=== PATIENT | female | born 1950 | race Caucasian/White ===

== ENCOUNTER → 2017-03-16 | Outpatient (CLI) | payer BC ==
--- NOTE | 2017-03-19 13:09 | MM ---
Reason for exam: screening (asymptomatic). Last mammogram was performed 8 years and 8 months ago. History: Patient is postmenopausal. Family history of breast cancer in mother at age 70. Physical Findings: A clinical breast exam by your physician is recommended on an annual basis and results should be correlated with mammographic findings. MG Screening Mammo w CAD Bilateral CC, MLO, and XCCL view(s) were taken. Prior study comparison: July 08, 2008, bilateral digital screening mammogram. June 25, 2007, bilateral screening mammogram w/CAD. There are scattered fibroglandular densities. No significant changes when compared with prior studies. ASSESSMENT: Negative, BI-RAD 1 RECOMMENDATION: Routine screening mammogram of both breasts in 1 year.
== END | disposition home or self-care (01) ==
LOC: RADMAMWWP 15:36
PROVIDERS: ATTEND Family Medicine
DX: Z12.31 Encounter for screening mammogram for malignant neoplasm of breast (principal)

== ENCOUNTER → 2018-10-31 | Outpatient (CLI) | payer MEDICARE, BC ==
--- NOTE | 2018-11-01 09:11 | MM ---
Reason for exam: screening (asymptomatic). Last mammogram was performed 1 year and 7 months ago. History: Patient is postmenopausal. Family history of breast cancer in mother at age 70. Physical Findings: A clinical breast exam by your physician is recommended on an annual basis and results should be correlated with mammographic findings. MG 3D Screening Mammo W/Cad Bilateral CC and MLO view(s) were taken. Prior study comparison: March 16, 2017, bilateral MG screening mammo w CAD. July 08, 2008, bilateral digital screening mammogram. The breast tissue is heterogeneously dense. This may lower the sensitivity of mammography. No suspicious abnormality. No significant changes when compared with prior studies. ASSESSMENT: Negative, BI-RAD 1 RECOMMENDATION: Routine screening mammogram of both breasts in 1 year.
== END | disposition home or self-care (01) ==
LOC: RADMAMWWP 12:46
PROVIDERS: ATTEND Family Medicine
DX: Z12.31 Encounter for screening mammogram for malignant neoplasm of breast (principal)
CPT/HCPCS: 77063; 77067

== ENCOUNTER → 2021-03-15 | Outpatient (CLI) | payer MEDICARE ==
[~2021-03-15] MED LIST: DOBUTamine DRIP for NUC MED 500 MG in DEXTROSE/WATER 1 250ML.BAG IV PRN
--- NOTE | 2021-03-15 14:24 | ECHOS ---
STRESS ECHOCARDIOGRAM DOBUTAMINE STRESS ECHOCARDIOGRAM: DATE OF SERVICE: 03/15/2021 LUMASON: N/A Vial INDICATIONS: Preop cc MEDICATIONS: BASELINE HEART RATE: 79 BASELINE BLOOD PRESSURE: 139/79 MAXIMUM HEART RATE: 129 MAXIMUM BLOOD PRESSURE: 126/52 85% MPHR: 129 100% MPHR: 152 METS: MAXIMUM STAGE REACHED: IV TOTAL EXERCISE TIME: 12:33 CLINICAL INFORMATION: STRESS DATA: Heart rate is 79, pressure is 139/79 mmHg. Baseline EKG showed sinus mechanism. Dobutamine infusion at a dose of 10 mcg/kg per minute was initiated and increased to 40 mcg/kg per minute per protocol. The max heart rate was 129, which is about 100% of maximum predicted heart rate and maximum blood pressure was 126/52 mmHg. Clinically, the patient did not have any symptoms of chest pain or chest discomfort during the testing or on recovery. The EKG did not show any significant ST or T-wave abnormalities concerning for ischemia. ECHOCARDIOGRAM IMAGES: On echocardiogram images from parasternal long axis view, parasternal short axis view, apical 4 chambers and apical 2 chambers were obtained as the baseline images, at low dose dobutamine infusion, as well as at the peak heart rate and also on recovery. The echocardiogram images were technically difficult and Lumason was used. On recovery, the patient did have some anterior wall hypokinesia concerning for ischemia. CONCLUSION: 1. Normal EKG in response to dobutamine. 2. Abnormal echocardiogram in response to dobutamine with evidence of anterior wall motion abnormalities concerning for ischemia. 3. Please note that the study was technically difficult. MMLYNSEYL / IJN: [id number] /
== END | disposition home or self-care (01) ==
LOC: RADNMMAIN 09:45
PROVIDERS: ATTEND Family Medicine
DX: R94.31 Abnormal electrocardiogram [ECG] [EKG] (principal)
CPT/HCPCS: C8930; Q9950; 93351

== ENCOUNTER → 2021-03-21 | Outpatient (CLI) | payer MEDICARE | END | disposition home or self-care (01) | LOC: LABPAT 11:06 | PROVIDERS: ATTEND Orthopaedic Surgery | DX: Z01.812 Encounter for preprocedural laboratory examination (principal); M16.12 Unilateral primary osteoarthritis, left hip | CPT/HCPCS: 87070 ==

== ENCOUNTER → 2021-04-06 | Outpatient (CLI) | payer MEDICARE ==
[2021-04-06 10:20] LABS: HCT 38.4 % (34.0-46.0); HGB 13.3 gm/dL (11.4-16.0); MCH 34.1 pg (25.0-35.0); MCHC 34.7 g/dL (31.0-37.0); MCV 98.1 fL (80.0-100.0); Mean Platelet Volume 6.9; Platelet Count 331 k/uL (150-450); RBC 3.91 m/uL (3.80-5.40); RDW 13.1 % (11.5-15.5); WBC 7.2 k/uL (3.8-10.6)
[2021-04-06 10:40] LABS: African American GFR (CKD) >90 (>60 ml/min/1.73 sqM); Anion Gap 10 mmol/L; Blood Urea Nitrogen 19 mg/dL (7-17); Carbon Dioxide 28 mmol/L (22-30); Chloride 93 mmol/L (98-107); Non-African American GFR(CKD) 85 (>60 ml/min/1.73 sqM); Sodium 131 mmol/L (137-145)
== END | disposition home or self-care (01) ==
LOC: LABWHC1 09:40
PROVIDERS: ATTEND Internal Medicine Cardiovascular Disease
DX: Z01.812 Encounter for preprocedural laboratory examination (principal); R93.1 Abnormal findings on diagnostic imaging of heart and coronary circulation
CPT/HCPCS: 36415; 80051; 82565; 84520; 85027

== ENCOUNTER → 2021-04-08 | Outpatient (CLI) | payer MEDICARE | END | disposition home or self-care (01) | LOC: LABWHC1 07:59 | PROVIDERS: ATTEND Family Medicine | DX: E87.1 Hypo-osmolality and hyponatremia (principal) | CPT/HCPCS: 36415; 82024; 82533; 84588 ==

== ENCOUNTER 2021-04-14 09:08 | Day surgery (SDC) | payer MEDICARE ==
[2021-04-11 12:10] VITALS: BMI 41.5
[~2021-04-14 09:08] MED LIST changes: +ALPRAZolam 0.25 MG TAB PO PRN; +ALPRAZolam 0.5 MG TAB PO PRN; +ASPIRIN 325 MG TAB PO STA; +ATORVASTATIN 80 MG TAB PO STA; -DOBUTamine DRIP for NUC MED 500 MG in DEXTROSE/WATER 1 250ML.BAG IV PRN; +NITROGLYCERIN SL TABS 0.4 MG TAB SUBLINGUAL PRN; +SODIUM CHLORIDE 0.9% 1,000 ML in EMPTY BAG 1 BAG IV ONE
[2021-04-14 09:53] LABS: Glucose,Whole Blood 125 mg/dL (75-99)
[2021-04-14 09:57] VITALS: RESP 18; TEMP 99.2
[2021-04-14] MEDS: MIDAZOLAM 2 MG/2 ML VIAL IVP ONE ×2 (10:53→10:56)
[2021-04-14] MEDS ORDERED: fentaNYL (PF) 50 MCG/ML 2 ML AMP IVP ONE (10:53)
[2021-04-14] MEDS ORDERED: LIDOCAINE 1% INJ 10MG/ML (20 ML MDV) SQ ONE (10:55)
[2021-04-14] MEDS ORDERED: IOPAMIDOL-370 125ML BTL INJ ONE (11:15)
[2021-04-14] MEDS ORDERED: RX INFO: IV CONTRAST WAS GIVEN 1 EACH MISC MISCELLANE PRN (11:47)
[2021-04-14] MEDS ORDERED: SODIUM CHLORIDE 0.9% 1,000 ML IV SCH (12:00)
[2021-04-14] MEDS ORDERED: ACETAMINOPHEN TAB 325 MG TAB ONE (13:12)
--- NOTE | 2021-04-14 14:56 | CC ---
CARDIAC CATHETERIZATION REPORT INDICATION: This is a 70-year-old lady who was to undergo a hip replacement and underwent a dobutamine stress echo as part of preop cardiac evaluation. The stress test showed ischemia in LAD distribution and I advised her to undergo invasive angiography prior to surgery. She was explained of risks, benefits and alternatives, understood and accepted. PROCEDURE NOTE: After obtaining informed consent, left heart catheterization and coronary angiogram were performed via the right femoral artery using standard Rosalba catheters. The patient tolerated the procedure well without any obvious immediate complications. A femoral angiogram was performed and Angio-Seal will be deployed for hemostasis. Patient received moderate conscious sedation. Total sedation time was 15 minutes. FINDINGS: 1. HEMODYNAMICS: Left ventricular end-diastolic pressure is 12-14 mm. There is no significant gradient across the aortic valve. 2. LEFT VENTRICULOGRAM: Left ventriculogram is not performed. 3. ANGIOGRAPHIC DATA: Left Main Coronary Artery: Left main coronary artery is a normal-sized vessel and is free of stenosis. Divides into left anterior descending coronary artery and circumflex coronary artery. LAD and its branches, circumflex coronary artery and its branches are free of significant stenosis. Right coronary artery is a large dominant vessel. There is a focal 80% to 90% stenosis involving the PLV branch. CONCLUSION: Single-vessel coronary artery disease as described above. PLAN: Given the fact that the patient does not have any symptoms of angina, shortness of breath and does not have any evidence of ischemia in the PLV distribution, the plan at this stage is to let her go through her hip replacement and treat her with medical therapy and consider revascularization of the PLV after the surgery if necessary. I discussed the pros and cons of treatment options with the patient. She understands and is in agreement with the plan. She has significant and disabling hip pain with very limited physical activity. MMODL / IJN: [id number] /
--- NOTE | 2021-04-14 15:01 | LTR ---
April 14, 2021 Re: Inez Busby Dear Steven: I performed cardiac catheterization on Inez Busby. A detailed catheterization note is enclosed for your records. In brief, cardiac catheterization revealed significant stenosis involving the PLV branch. Given the fact that the patient does not have any cardiac symptoms and does not have any ischemia in the PLV distribution, we opted to treat her with medical therapy and let her go through hip replacement surgery at this time. We will consider revascularization of the PLV if necessary down the road. Thank you for giving us the privilege to participate in the care of this pleasant lady. Sincerely, MD YEYO Cannon / ABEL: [id number] /
[2021-04-14 16:52] VITALS: BP 124/68; PULSE 72
== END 2021-04-14 16:38 | disposition home or self-care (01) ==
LOC: CATHCVL 09:08
PROVIDERS: ATTEND Internal Medicine Cardiovascular Disease
DX: I25.10 Atherosclerotic heart disease of native coronary artery without angina pectoris (principal); F17.210 Nicotine dependence, cigarettes, uncomplicated; E11.9 Type 2 diabetes mellitus without complications; I10 Essential (primary) hypertension; E78.5 Hyperlipidemia, unspecified; Z82.49 Family history of ischemic heart disease and other diseases of the circulatory system; Z79.899 Other long term (current) drug therapy; Z79.84 Long term (current) use of oral hypoglycemic drugs; Z88.2 Allergy status to sulfonamides; Z88.8 Allergy status to other drugs, medicaments and biological substances
CPT/HCPCS: 93458; 87635; C1769 ×2; C1760; C1894; J2250; J2001; J3010; Q9967

== ENCOUNTER → 2021-05-13 | Outpatient (CLI) | payer MEDICARE ==
[2021-05-13 09:45] LABS: Basophils # (A) 0.1 k/uL (0-0.2); Basophils % (A) 1 %; Eosinophils # (A) 2.1 k/uL (0-0.7); Eosinophils % (A) 22 %; HCT 39.4 % (34.0-46.0); Lymphocytes # (A) 1.5 k/uL (1.0-4.8); Lymphocytes % (A) 15 %; MCH 32.1 pg (25.0-35.0); MCHC 33.1 g/dL (31.0-37.0); Monocytes # (A) 0.4 k/uL (0-1.0); Monocytes % (A) 4 %; Neutrophils # (A) 5.6 k/uL (1.3-7.7); Neutrophils % (A) 57 %; Platelet Count 306 k/uL (150-450); RBC 4.06 m/uL (3.80-5.40); RDW 13.6 % (11.5-15.5); WBC 9.9 k/uL (3.8-10.6)
[2021-05-13 09:55] LABS: Prothrombin Time 10.6 sec (9.0-12.0)
[2021-05-13 10:08] LABS: Potassium 5.2 mmol/L (3.5-5.1)
== END | disposition home or self-care (01) ==
LOC: LABPAT 08:39
PROVIDERS: ATTEND Orthopaedic Surgery
DX: Z01.812 Encounter for preprocedural laboratory examination (principal); M16.12 Unilateral primary osteoarthritis, left hip
CPT/HCPCS: 36415; 80051; 85025; 85610

== ENCOUNTER 2021-05-23 06:12 | Day surgery (SDC) | payer MEDICARE ==
[2021-05-18 10:11] VITALS: BMI 42.1
--- NOTE | 2021-05-22 11:55 | HP ---
HISTORY AND PHYSICAL Inez Wiley is a 70-year-old patient seen with symptomatic left hip osteoarthritis. We discussed options for treatment. She elected to proceed with left total hip arthroplasty. Consent regarding the procedure was obtained. Medical clearance was provided by Dr. Cobian. PAST MEDICAL HISTORY: Hypertension, hyperlipidemia, tht-rxejriy-ieqbzubys diabetes, hypothyroidism. PAST SURGICAL HISTORY: Hysterectomy. MEDICATIONS: Amitriptyline, atorvastatin, hydrochlorothiazide, metformin, metoprolol, Xanax. ALLERGIES: NONE. SOCIAL HISTORY: She denies tobacco use. PHYSICAL EXAMINATION: Evaluation of the left hip, she has a very limited range of motion. Severe pain. Positive hip impingement sign. Straight leg raise negative. Distal neurovascular exam is intact. RADIOGRAPHS: Radiographs of the left hip reveal severe osteoarthritic changes. IMPRESSION: 1. Left hip osteoarthritis. 2. Hypertension. 3. Hyperlipidemia. 4. Zpp-jfsazjh-jcpoakiyh diabetes. PLAN: Direct anterior approach left total hip arthroplasty. Surgery scheduled 05/23/2021. MMODL / IJN: [id number] /
[~2021-05-23 06:12] MED LIST changes: +ACETAMINOPHEN TAB 500 MG TAB PO PRN; -ALPRAZolam 0.25 MG TAB PO PRN; -ALPRAZolam 0.5 MG TAB PO PRN; -ASPIRIN 325 MG TAB PO STA; -ATORVASTATIN 80 MG TAB PO STA; +DEXAMETHASONE SOD PHOSPHATE 4 MG/ML 1 ML VIAL IV ONE; +MELOXICAM 7.5 MG TAB PO PRN; +MIDAZOLAM 2 MG/2 ML VIAL IV PRN; -NITROGLYCERIN SL TABS 0.4 MG TAB SUBLINGUAL PRN; +ONDANSETRON 4 MG/2 ML VIAL IVP ONE; -SODIUM CHLORIDE 0.9% 1,000 ML in EMPTY BAG 1 BAG IV ONE; +TRANEXAMIC ACID 1,000 MG in SODIUM CHLORIDE 0.9% 100 ML IVPB PRN
[2021-05-23 06:55] LABS: Glucose,Whole Blood 137 mg/dL (75-99)
[2021-05-23] MEDS ORDERED: HYDROmorphone 0.5 MG/0.5 ML SYRINGE IVP PRN ×3 (07:00→09:13)
[2021-05-23] MEDS ORDERED: LACTATED RINGERS 1,000 ML IV ONE ×2 (07:08→09:20)
[2021-05-23] MEDS ORDERED: KETAMINE 10 MG/ML 20 ML VIAL ONE (07:27)
[2021-05-23] MEDS ORDERED: ePHEDrine SULFATE/0.9% NACL/PF 50 MG/5 ML SYRINGE IV ONE (07:27)
[2021-05-23] MEDS ORDERED: PROPOFOL 10 MG/ML 20 ML VIAL IV ONE (07:27)
[2021-05-23] MEDS ORDERED: MIDAZOLAM 2 MG/2 ML VIAL ONE (07:27)
[2021-05-23] MEDS ORDERED: SODIUM CHLORIDE 0.9% 100 ML BAG ONE (07:27)
[2021-05-23] MEDS ORDERED: fentaNYL (PF) 50 MCG/ML 2 ML AMP ONE (07:27)
[2021-05-23] MEDS ORDERED: TRANEXAMIC ACID 1,000 MG/10 ML VIAL ONE (07:27)
[2021-05-23] MEDS ORDERED: PHENYLEPHRINE-0.9% NACL SYG 1,000 MCG/10 ML SYRINGE ONE (07:27)
[2021-05-23] MEDS ORDERED: LIDOCAINE 1% INJ 10MG/ML (20 ML MDV) ONE (07:27)
[2021-05-23] MEDS ORDERED: diphenhydrAMINE 50 MG/ML 1 ML VIAL ONE (07:27)
[2021-05-23] MEDS ORDERED: ceFAZolin 1,000 MG in SODIUM CHLORIDE 0.9% 1,000 ML IRRIGATION ONE (07:30)
[2021-05-23] MEDS: ROPIVACAINE/EPI/CLONIDINE/KET 50 ML SYRINGE MISCELLANE PRN ×2 (08:04→08:49)
[2021-05-23] MEDS ORDERED: HYDROmorphone 0.2 MG/1 ML SYRINGE IVP PRN (09:13)
[2021-05-23] MEDS ORDERED: NALOXONE 0.4 MG/ML 1 ML VIAL IV PRN (09:13)
[2021-05-23] MEDS ORDERED: ONDANSETRON 4 MG/2 ML VIAL IVP PRN (09:13)
[2021-05-23] MEDS ORDERED: HYDROcodone/APAP 5-325MG 1 EACH TAB PO PRN (09:13)
--- NOTE | 2021-05-23 09:13 | P.OP ---
Date of Procedure: 05/23/21 Preoperative Diagnosis: Left hip osteoarthritis Postoperative Diagnosis: Left hip osteoarthritis Procedure(s) Performed: Direct anterior left total hip arthroplasty Implants: 1. Depuy Corail size 12 135 collar press-fit femoral stem 2. Depuy pinnacle 52 mm press-fit acetabular shell 3. Depuy pinnacle neutral polyethylene acetabular liner 36 mm ID 52 mm OD 4. Biolox delta ceramic femoral head +8.5 36 mm Anesthesia: local, spinal Surgeon: Dionicio Echeverria Study Assistant #1: Christiano Muhammad Estimated Blood Loss (ml): 125 Pathology: other (Femoral head) Condition: stable Disposition: PACU Indications for Procedure: 70-year-old patient seen with symptomatic left hip osteoarthritis. After treatment options were discussed, she elected to proceed with total hip arthroplasty via direct anterior approach. Operative Findings: See description of procedure Description of Procedure: The patient was taken to the operative suite. Patient underwent a spinal anesthetic by the department of anesthesia. Patient was then transferred to the [place] table. Patient was given preoperative IV antibiotics and TXA. Both lower extremities were placed in standard leg spars. The hip was then prepped and draped in the normal sterile orthopedic fashion. A standard anterior incision was made beginning 3 cm lateral and 1 cm distal to the ASIS extending 10 cm. Dissection was then carried down through the subcutaneous soft tissues down to the fascia overlying the tensor fascia lou. An incision was now made through the fascia. Careful dissection was taken down exposing the tensor fascia lou muscle. A Cobra retractor was now placed along the medial femoral neck and a second one along the lateral femoral neck. The venous circumflex vessels were now identified, cauterized and clipped. We identified the anterior hip capsule. An incision was made through the hip capsule along the lateral border. I performed a partial anterior capsulectomy. Retractors were now placed around the femoral neck itself. A femoral neck cut was now made with a sagittal saw. It was completed with an osteotome at the lateral neck area. The femoral head was now removed without difficulty. The extremity was now rotated to 60 of external rotation. It was locked in position. Residual labrum was now debrided out. Serial reaming was performed of the acetabulum while Dixon weinstein sisted holding an anterior retractor for exposure. Once we reached the appropriate size and a trial was position and fit nicely. The appropriate size was now chosen opened and made available. It was introduced into the acetabulum without difficulty. The C-arm/fluoroscopy was now brought into the operative field. We made sure we had a true AP pelvic view. We now under direct C-arm/fluoroscopy introduced into the acetabular component with appropriate version and inclination. I held the cup in appropriate position well Dixon DURON used a mallet to seat the acetabular component. I noted the component now to be well seated and stable. Acetabular cup introduce her was removed. The C-arm was pulled back. An appropriate liner was introduced and clicked into position. It was felt to be stable. At this point retractors were removed. The extremity was now placed into 120 external rotation with no traction. The leg was now dropped to the ground and adducted. Appropriate retractors were now positioned along the proximal femur. We also placed our femoral look into position. Additional capsular releasing was performed to gain access to the proximal femur. We now used a box osteotome. A canal finder was now utilized. Serial broaching was now performed with the assistance of Dixon DURON tapping the broaches down with a mallet while held the broach in appropriate rotation and position. This was done until we reached the appropriate size with good overall rotational stability. Appropriate calcar planing was performed. A trial head/neck was placed into position. The hip was now reduced. The C- arm/fluoroscopy was brought back into the operative field. I obtained an AP pelvis which demonstrated reasonable leg length alignment. The trial components appeared adequately size and position. The C-arm/fluoroscopy was pulled back. Retractors were repositioned and the hip was dislocated. The leg was again taken down to the ground and adducted. Appropriate retractors were repositioned as well as the femoral hook. All trial components were removed. The femoral implant was opened along with the femoral head. The femoral implant was introduced on the appropriate handle into our pre-broached area. I held the component position well Dixon DURON used a mallet to seat the femoral component. The femoral component was now noted to be well seated and stable.. The femoral head was introduced with good positioning and fixation noted. Retractors were now removed. The hip was now reduced. There appeared be good positioning of the hip confirmed on intraoperative fluoroscopy. Spot films were obtained to document this. A second gram of TXA was given. The deep and superficial soft tissues were infiltrated with local analgesic. Bipolar cautery had been utilized intermittently through the procedure for hemostasis. The wound was irrigated copiously with pulse lavage mechanical irrigation. The fascia was repaired with Vicryl suture. The subcutaneous soft tissues were repaired in layers with Vicryl suture. The skin was approximated with pernio/Dermabond. Sterile dressings were applied. Patient was then awakened, transferred to a bed and taken to recovery in stable condition. Dixon DURON assisted with the complex procedure.
[2021-05-23 09:56] LABS: Glucose,Whole Blood 162 mg/dL (75-99)
[2021-05-23] MEDS ORDERED: ALPRAZolam 0.25 MG TAB PO PRN (11:00)
[2021-05-23] MEDS: LACTATED RINGERS 1,000 ML IV SCH ×3 (11:18→20:23)
[2021-05-23 11:43] LABS: Glucose,Whole Blood 236 mg/dL (75-99)
[2021-05-23] MEDS: INSULIN ASPART (NovoLOG) 100 UNIT/ML VIAL SQ SCH ×3 (12:36→20:29)
[2021-05-23] MEDS: METOPROLOL SUCCINATE (ER) 25 MG TAB.ER.24H PO SCH (12:38)
[2021-05-23] MEDS: ISOSORBIDE MONONITRATE ER 30 MG TAB.ER.24H PO SCH (12:38)
--- NOTE | 2021-05-23 14:49 | P.CONS ---
History of Present Illness - Reason for Consult Consult date: 05/23/21 Medical management - Chief Complaint Right hip also arthritis - History of Present Illness This is a 70-year-old female with past medical history noted below that presented to the hospital for elective total left hip arthroplasty. Patient is postoperative day #0. She does not have any specific concerns or complaints. Her pain is well controlled. I was asked to see her for medical management. Review of Systems Review of system: 14 points review of systems were obtained and were negative except to what were mentioned in the HPI. Past Medical History Past Medical History: Diabetes Mellitus, Hyperlipidemia, Hypertension, Osteoarthritis (OA), Supraventricular Tachycardia (SVT) Additional Past Medical History / Comment(s): one time episode of SVT years ago- no further problems, radioactive iodine tx. for thyroid, fully vaccinated for covid, this surgery was rescheduled due to abnormal EKG & stress test, had recent cardiac cath History of Any Multi-Drug Resistant Organisms: None Reported Past Surgical History: Adenoidectomy, Heart Catheterization, Hysterectomy, Orthopedic Surgery Additional Past Surgical History / Comment(s): lap. hyst., colonoscopy, hammertoe surg., arthroscopy left knee Past Anesthesia/Blood Transfusion Reactions: No Reported Reaction Past Psychological History: Anxiety, Depression Smoking Status: Former smoker Past Alcohol Use History: Heavy Additional Past Alcohol Use History / Comment(s): quit smoking 3 yrs. ago, smoked for >40 yrs. 1ppd, was drinking >7 glass/week but not recently Past Drug Use History: Marijuana Additional Drug Use History / Comment(s): occasional use of edible-hasn't used in a while - Past Family History Father Family Medical History: Coronary Artery Disease (CAD) Medications and Allergies Home Medications Medication Instructions Recorded Confirmed Type ALPRAZolam [Xanax] 0.25 mg PO QID PRN 03/23/21 05/17/21 History Acetaminophen [Tylenol] 325 - 650 mg PO Q6H PRN 03/23/21 05/17/21 History Alendronate Sodium [Fosamax] 70 mg PO SA 03/23/21 05/17/21 History Amitriptyline HCl [Elavil] 10 mg PO HS 03/23/21 05/17/21 History Atorvastatin [Lipitor] 20 mg PO DAILY 03/23/21 05/17/21 History Ibuprofen [Motrin] 600 mg PO Q6HR PRN 03/23/21 05/17/21 History Metoprolol Succinate [Toprol XL] 25 mg PO DAILY 03/23/21 05/17/21 History PARoxetine HCL [Paxil] 40 mg PO DAILY 03/23/21 05/17/21 History hydroCHLOROthiazide [Hydrodiuril] 12.5 mg PO DAILY 03/23/21 05/17/21 History metFORMIN HCL [Glucophage] 500 mg PO QAM 03/23/21 05/17/21 History Isosorbide Mononitrate ER [Imdur] 30 mg PO DAILY 05/17/21 05/17/21 History Nitroglycerin Sl Tabs [Nitrostat] 0.4 mg SUBLINGUAL Q5M PRN 05/17/21 05/17/21 History Allergies Allergy/AdvReac Type Severity Reaction Status Date / Time bupropion [From Wellbutrin] Allergy Nausea Unverified 05/17/21 14:50 sulfamethoxazole Allergy Nausea Unverified 05/17/21 14:50 [From Bactrim] trimethoprim [From Bactrim] Allergy Nausea Unverified 05/17/21 14:50 Physical Exam Vitals: Vital Signs Temp Pulse Pulse Resp BP BP Pulse Ox 05/23/21 14:00 98.5 F 96 19 124/82 92 L 05/23/21 10:25 98.4 F 80 18 114/65 93 L 05/23/21 10:15 88 16 122/74 92 L 05/23/21 09:59 86 16 125/79 97 05/23/21 09:44 96.8 F L 88 12 124/74 97 05/23/21 06:39 97.6 F 89 18 137/89 97 Intake and Output 05/22/21 05/23/21 05/23/21 22:59 06:59 14:59 Intake Total 1150 Output Total 125 Balance 1025 Intake: IV 1150 Output: Estimated Blood Loss 125 Other: Weight 102.2 kg 102.2 kg General: The patient is awake and alert, in no distress Eye: there is normal conjunctiva bilaterally. Neck: The neck is supple, there is no JVD. Cardiovascular: Normal S1-S2, no S3-S4, no murmurs. Respiratory: Lungs clear to auscultation bilaterally Gastrointestinal: Abdomen is soft, nontender Musculoskeletal: There is no pedal edema. Neurological:. Speech is normal. Skin: Skin is warm and dry Results CBC & Chem 7: 05/23/21 07:02 Labs: Abnormal Lab Results - Last 24 Hours (Table) 05/23/21 05/23/21 05/23/21 Range/Units 06:54 09:54 11:40 POC Glucose (mg/dL) 137 H 162 H 236 H (75-99) mg/dL Assessment and Plan Assessment: 1. Postoperative day #0 status post total left hip arthroplasty, postoperative care, pain control, and DVT prophylaxis per orthopedic protocol. Currently on subcu Lovenox. 2. Chronic medical problems: Type 2 diabetes, essential hypertension, hyperlipidemia, underlying depression, morbid obesity Today, I reviewed her medication list and lab work results. Old home dose of metformin and hydrochlorothiazide. Continue sliding scale insulin. Resume home medications otherwise. Check lab work in the morning. Thank you very much for the consultation. I will continue to follow up on the patient closely with you.
[2021-05-23] MEDS: HYDROcodone/APAP 5-325MG 1 EACH TAB PO PRN ×2 (14:51→23:04)
[2021-05-23 16:59] LABS: Glucose,Whole Blood 200 mg/dL (75-99)
--- NOTE | 2021-05-23 17:06 | XR ---
EXAMINATION TYPE: XR Hip Limited LT DATE OF EXAM: 05/23/2021 CLINICAL HISTORY: Left hip postsurgical. TECHNIQUE: Single intraoperative AP portable view of left hip is obtained immediately postoperatively . COMPARISON: None. FINDINGS: Single intraoperative view of the left hip. Metallic hardware from a total left hip prosthe sis with proximal acetabular distal femoral component in place. Fluoroscopy time is 19 seconds. IMPRESSION: 1. Total left hip prosthesis is in place on single view.
[2021-05-23] MEDS: PREGABALIN 75 MG CAP PO SCH (20:23)
[2021-05-23 20:25] LABS: Glucose,Whole Blood 190 mg/dL (75-99)
[2021-05-23] MEDS ORDERED: SENNOSIDES-DOCUSATE SODIUM 1 EACH TAB PO SCH (21:00)
[2021-05-23] MEDS ORDERED: AMITRIPTYLINE HCL 10 MG TAB PO SCH (21:00)
[2021-05-24 03:38] VITALS: PULSE 78
[2021-05-24] MEDS: LACTATED RINGERS 1,000 ML IV SCH ×2 (04:50→07:08)
[2021-05-24 07:02] LABS: Glucose,Whole Blood 119 mg/dL (75-99)
[2021-05-24] MEDS: INSULIN ASPART (NovoLOG) 100 UNIT/ML VIAL SQ SCH ×2 (07:07→11:30)
[2021-05-24] MEDS: HYDROcodone/APAP 5-325MG 1 EACH TAB PO PRN ×2 (07:14→12:58)
[2021-05-24 07:17] VITALS: BP 126/77; RESP 18; TEMP 98.7
[2021-05-24] MEDS: ISOSORBIDE MONONITRATE ER 30 MG TAB.ER.24H PO SCH (07:17)
[2021-05-24] MEDS: PREGABALIN 75 MG CAP PO SCH (07:17)
[2021-05-24] MEDS: METOPROLOL SUCCINATE (ER) 25 MG TAB.ER.24H PO SCH (07:17)
[2021-05-24] MEDS ORDERED: MELOXICAM 7.5 MG TAB PO SCH (09:00)
[2021-05-24] MEDS ORDERED: ATORVASTATIN 20 MG TAB PO SCH (09:00)
[2021-05-24] MEDS ORDERED: ENOXAPARIN 40 MG/0.4 ML SYRINGE SQ SCH (09:00)
[2021-05-24] MEDS ORDERED: PARoxetine 20 MG TAB PO SCH (09:00)
[2021-05-24] MEDS ORDERED: FAMOTIDINE 20 MG TAB PO SCH (09:00)
[2021-05-24 11:35] LABS: Glucose,Whole Blood 120 mg/dL (75-99)
--- NOTE | 2021-05-24 12:47 | P.DS ---
Providers Date of admission: 05/23/2021 Expected date of discharge: 05/24/21 Attending physician: Doinicio Echeverria Consults: 05/23/21 09:13 Consult Physician Routine Consulting Provider: Onur Bullard Consult Reason/Comments: Medical management Do you want consulting provider notified?: Yes Primary care physician: Steven Ellison [facility] Course: Date of admission: 05/23/2021 Date of discharge: 05/24/2021 Admission diagnosis: Left hip osteoarthritis Discharge diagnosis: Same Attending physician: Dr. Echeverria Surgical procedures: Left total hip arthroplasty Brief history: Patient is a 70-year-old female with a history of progressive primary left hip osteoarthritis. At this point patient has failed conservative treatment measures and has opted to proceed with a elective left total hip arthroplasty. Hospital course: Details of patient's surgery can be found in operative report. Patient tolerated the procedure well and was subsequently transported to orthopedic floor. Patient's orthopedic and medical care was provided daily. Patient had daily laboratory tests performed for evaluation of overall blood counts. Patient had daily physical therapy to include strengthening range of motion as well as education with walker ambulation. Patient was treated with Lovenox for their postoperative DVT prophylaxis during their inpatient stay. Patient was noted to have a relatively uneventful postoperative course. Patient reported satisfactory pain control with oral pain medications by postoperative day 1. Patient showed satisfactory progress with physical therapy. Patient moved steadily through the program and had no difficulty meeting the goals by postoperative day 1. Given patient's otherwise satisfactory course and having met physical therapy goals, plan is to discharge patient home on postoperative day 1. Discharge condition/disposition: Patient will be discharged home in stable condition. Discharge medications: Instructions are given on resumption of patient's normal daily medications per primary care recommendation, in addition patient will be prescribed [place] 5 mg/325 mg; aspirin 81 mg twice a day 30 days; senna.. Discharge instructions: 1. Wound care and infection precautions, keep incision dry and covered while showering, no lotions, creams, moisturizers. No soaking, tubs, pools, hottubs. Do not scrub over the incision. 2. Weight-bear [as tolerated] with walker / cane until follow-up. 3. Ice and elevate when necessary. Do not exceed 20 minutes per hour with ice pack. 4. Utilize compression sleeve until seen at first follow up appointment. 5. Visiting nursing care. 6. Home physical therapy. 7. Pain meds and anticoagulants per prescription. 8. Pain medication has potential to cause constipation. Increase oral fluid and fiber intake. Contact primary care provider if you have not had a bowel movement within 48 hours after discharge 9. No anti-inflammatory medication until discussed at first post operative visit, this including Motrin, Aleve, Mobic, Diclofenac. 10. Follow up in office at 2 weeks postop with Dixon Muhammad PA-C / Venancio Garvin PA-C 11. Follow up with your primary care doctor 7-10 days after discharge. 12. Contact [facility] with any questions, . Silver foam dressing may be removed after 7-10 days. While dressing is in place please cover the area with Saran wrap while showering. Assessment: Left hip osteoarthritis Procedures: Left total hip arthroplasty Patient Condition at Discharge: Good Plan - Discharge Summary Discharge Rx Participant: Yes New Discharge Prescriptions: New HYDROcodone/APAP 5-325MG [[place] 5-325] 1 tab PO Q6HR PRN #42 tab PRN Reason: Pain Sennosides [Senna] 8.6 mg PO DAILY PRN #20 tablet PRN Reason: Constipation Aspirin [Adult Low Dose Aspirin EC] 81 mg PO BID #60 tablet. No Action Ibuprofen [Motrin] 600 mg PO Q6HR PRN PRN Reason: Pain PARoxetine HCL [Paxil] 40 mg PO DAILY Metoprolol Succinate [Toprol XL] 25 mg PO DAILY Amitriptyline HCl [Elavil] 10 mg PO HS Alendronate Sodium [Fosamax] 70 mg PO SA Acetaminophen [Tylenol] 325 - 650 mg PO Q6H PRN PRN Reason: Pain Nitroglycerin Sl Tabs [Nitrostat] 0.4 mg SUBLINGUAL Q5M PRN PRN Reason: Chest Pain metFORMIN HCL [Glucophage] 500 mg PO QAM Atorvastatin [Lipitor] 20 mg PO DAILY ALPRAZolam [Xanax] 0.25 mg PO QID PRN PRN Reason: Anxiety hydroCHLOROthiazide [Hydrodiuril] 12.5 mg PO DAILY Isosorbide Mononitrate ER [Imdur] 30 mg PO DAILY Discharge Medication List ALPRAZolam [Xanax] 0.25 mg PO QID PRN 03/23/21 [History] Acetaminophen [Tylenol] 325 - 650 mg PO Q6H PRN 03/23/21 [History] Alendronate Sodium [Fosamax] 70 mg PO SA 03/23/21 [History] Amitriptyline HCl [Elavil] 10 mg PO HS 03/23/21 [History] Atorvastatin [Lipitor] 20 mg PO DAILY 03/23/21 [History] Ibuprofen [Motrin] 600 mg PO Q6HR PRN 03/23/21 [History] Metoprolol Succinate [Toprol XL] 25 mg PO DAILY 03/23/21 [History] PARoxetine HCL [Paxil] 40 mg PO DAILY 03/23/21 [History] hydroCHLOROthiazide [Hydrodiuril] 12.5 mg PO DAILY 03/23/21 [History] metFORMIN HCL [Glucophage] 500 mg PO QAM 03/23/21 [History] Isosorbide Mononitrate ER [Imdur] 30 mg PO DAILY 05/17/21 [History] Nitroglycerin Sl Tabs [Nitrostat] 0.4 mg SUBLINGUAL Q5M PRN 05/17/21 [History] Aspirin [Adult Low Dose Aspirin EC] 81 mg PO BID #60 tablet. 05/24/21 [Rx] HYDROcodone/APAP 5-325MG [[place] 5-325] 1 tab PO Q6HR PRN #42 tab 05/24/21 [Rx] Sennosides [Senna] 8.6 mg PO DAILY PRN #20 tablet 05/24/21 [Rx] Follow up Appointment(s)/Referral(s): Steven Cobian MD [Primary Care Provider] - 1 Week [facility], [NON-STAFF] - ([facility] will call you to arrange your first visit. ) Christiano Muhammad PAC [PHYSICIAN RESEARCH ASST] - 2 Weeks Patient Instructions/Handouts: How to Use an Incentive Spirometer (DC), Anterior Hip Replacement (DC) Discharge Disposition: HOME WITH HOME HEALTH SERVICES
--- NOTE | 2021-05-24 13:18 | FL ---
Fluoroscopy History: Total left hip FL TIME 19 SECONDS. 1 IMAGE SAVED UNDER [id number]. LEFT TOTAL HIP.
--- NOTE | 2021-05-24 14:19 | P.PN ---
Subjective Progress Note Date: 05/24/21 Principal diagnosis: Left hip osteoarthritis Patient was seen and examined early this afternoon at bedside. Patient was lying semirecumbent in bed. Patient says physical therapy went well this morning and she was able to get up and walk down the hallway and up-and-down a couple stairs. Patient says she is not having bowel movement yet, however, patient says she has been passing gas. Patient also says she has been using incentive spirometer. Patient says she is in somewhat decent amount pain, but she is ready to go home today. Patient denies chest pain, fever, shortness of breath, nausea, vomiting, saddle anesthesia, loss of bowel/bladder control. Objective - Vital Signs Vital signs: Vital Signs Temp 98.7 F 05/24/21 07:16 Pulse 78 05/24/21 02:30 Resp 18 05/24/21 07:30 BP 126/77 05/24/21 07:16 Pulse Ox 97 05/24/21 07:16 Intake & Output 05/23/21 05/24/21 05/24/21 18:59 06:59 18:59 Intake Total 1150 650 Output Total 425 300 300 Balance 725 350 -300 Weight 102.2 kg Intake: IV 1150 Intake, IV Titration 50 Amount ceFAZolin 2 gm In Sodium 50 Chloride 0.9% 50 ml @ 100 mls/hr IVPB ONCE PRN Rx# :[id number] Oral 600 Output: Urine 300 300 300 Estimated Blood Loss 125 Other: # Voids 2 2 - Exam Left hip: Incision is clean, dry, and intact. The exofin fusion tape is in good condition. There is minimal soft tissue swelling and ecchymosis surrounding the medial and lateral aspects of the incision. Calf is soft, no tenderness with palpation. Plantar flexion, dorsiflexion, EHL, FHL are intact. Sensory exam to light touch throughout the extremity is intact, dorsal pedis pulses 2+. - Labs CBC & Chem 7: 05/23/21 07:02 Labs: Abnormal Lab Results - Last 24 Hours (Table) 05/23/21 05/23/21 05/24/21 Range/Units 16:58 20:24 07:01 POC Glucose (mg/dL) 200 H 190 H 119 H (75-99) mg/dL 05/24/21 Range/Units 11:29 POC Glucose (mg/dL) 120 H (75-99) mg/dL Assessment and Plan Assessment: Left hip osteoarthritis Plan: 1. Left hip osteoarthritis - surgery performed yesterday, 05/23/2021 - left total hip arthroplasty. Patient stable this morning and doing well. Incision is clean, dry, intact. 2. Appreciate medical management 3. Pain management - stable at this time. Patient going home with [place] 5 mg/325 mg 4. GI/DVT prophylaxis - senna; patient going home with aspirin 81 mg twice a day 30 days 5. Encourage incentive spirometer use 6. Discharge planning - planning to discharge home today, 05/24/2021 Time with Patient: Less than 30
--- NOTE | 2021-05-24 14:20 | P.PN ---
Subjective Progress Note Date: 05/24/21 Patient is doing well today. She is looking forward to be discharged home. Objective - Vital Signs Vital signs: Vital Signs Temp 98.7 F 05/24/21 07:16 Pulse 78 05/24/21 02:30 Resp 18 05/24/21 07:30 BP 126/77 05/24/21 07:16 Pulse Ox 97 05/24/21 07:16 Intake & Output 05/23/21 05/24/21 05/24/21 18:59 06:59 18:59 Intake Total 1150 650 Output Total 425 300 300 Balance 725 350 -300 Weight 102.2 kg Intake: IV 1150 Intake, IV Titration 50 Amount ceFAZolin 2 gm In Sodium 50 Chloride 0.9% 50 ml @ 100 mls/hr IVPB ONCE PRN Rx# :[id number] Oral 600 Output: Urine 300 300 300 Estimated Blood Loss 125 Other: # Voids 2 2 - Exam General: The patient is awake and alert, in no distress Eye: there is normal conjunctiva bilaterally. Neck: The neck is supple, there is no JVD. Cardiovascular: Normal S1-S2, no S3-S4, no murmurs. Respiratory: Lungs clear to auscultation bilaterally Gastrointestinal: Abdomen is soft, nontender Musculoskeletal: There is no pedal edema. Neurological:. Speech is normal. Skin: Skin is warm and dry - Labs CBC & Chem 7: 05/23/21 07:02 Labs: Abnormal Lab Results - Last 24 Hours (Table) 05/23/21 05/23/21 05/24/21 Range/Units 16:58 20:24 07:01 POC Glucose (mg/dL) 200 H 190 H 119 H (75-99) mg/dL 05/24/21 Range/Units 11:29 POC Glucose (mg/dL) 120 H (75-99) mg/dL Assessment and Plan Assessment: 1. Postoperative day #0 status post total left hip arthroplasty, postoperative care, pain control, and DVT prophylaxis per orthopedic protocol. 2. Chronic medical problems: Type 2 diabetes, essential hypertension, hyperlipidemia, underlying depression, morbid obesity Patient is medically cleared for discharge home. Resume home medications.
[2021-05-24 16:32] LABS: Hemoglobin A1C 6.1 % (4.0-6.0)
== END 2021-05-24 14:50 | disposition home health service (06) ==
LOC: OR 06:12 → 4SSUR 09:44 → OR 05-24 14:50
PROVIDERS: ATTEND Orthopaedic Surgery
DX: M16.12 Unilateral primary osteoarthritis, left hip (principal); I10 Essential (primary) hypertension; E78.5 Hyperlipidemia, unspecified; E11.9 Type 2 diabetes mellitus without complications; E03.9 Hypothyroidism, unspecified; Z20.822 Contact with and (suspected) exposure to COVID-19; E66.01 Morbid (severe) obesity due to excess calories; Z68.41 Body mass index [BMI] 40.0-44.9, adult; I47.1 Supraventricular tachycardia; Z92.3 Personal history of irradiation; Z90.89 Acquired absence of other organs; Z98.890 Other specified postprocedural states; F41.9 Anxiety disorder, unspecified; F32.9 Major depressive disorder, single episode, unspecified; Z87.891 Personal history of nicotine dependence; Z82.49 Family history of ischemic heart disease and other diseases of the circulatory system; Z79.899 Other long term (current) drug therapy; Z90.710 Acquired absence of both cervix and uterus; Z79.84 Long term (current) use of oral hypoglycemic drugs; Z88.2 Allergy status to sulfonamides; Z88.8 Allergy status to other drugs, medicaments and biological substances
CPT/HCPCS: 97161; 86900; 86901; 84132; 85025; 86850; 88300; 83036; 87635; 73501; 27130; C1776; J1100; J0690 ×3; J2405; J1650; J1170

== ENCOUNTER 2021-07-25 11:34 | Day surgery (SDC) | payer MEDICARE ==
[2021-07-21 09:32] VITALS: BMI 42.5
--- NOTE | 2021-07-24 11:53 | HP ---
HISTORY AND PHYSICAL DATE OF SURGERY: 07/25/2021 Inez Wiley is a 70-year-old patient who was seen status post direct anterior left total hip arthroplasty performed on 05/23/2021. She was noted to have a persistent proximal wound dehiscence which appears superficial. I recommend at this point secondary closure of that incision/wound. I discussed the procedure, risks, complications, benefits and recovery. She was agreeable. Consent was obtained. PAST MEDICAL HISTORY: Hyperlipidemia, [id number] diabetes, hypertension. PAST SURGICAL HISTORY: Direct anterior left total hip arthroplasty. DAILY MEDICATIONS: Amitriptyline, hydrochlorothiazide, metformin, metoprolol, Paxil, Xanax. ALLERGIES: BACTRIM. SOCIAL HISTORY: She denies tobacco use. PHYSICAL EVALUATION OF THE LEFT HIP: She has painless range of motion. No real tenderness about the hip girdle. Straight- leg raise negative. Hip impingement sign is negative. There is about a 1.5 to 2 cm area proximally of wound dehiscence. It measures about 0.5 cm in width. There is no evidence for any drainage or significant erythema. RADIOGRAPHS: Radiographs of the hip reveal stable-appearing total hip arthroplasty. IMPRESSION: 1. Superficial wound dehiscence, left hip incision. 2. History of left direct anterior total hip arthroplasty. 3. Hypertension. 4. [id number] diabetes. PLAN: Left hip secondary wound closure. MMLYNSEYL / IJN: [id number] /
[2021-07-25 12:06] VITALS: TEMP 96.8
[2021-07-25] MEDS ORDERED: LACTATED RINGERS 1,000 ML IV ONE (12:06)
[2021-07-25 12:09] LABS: Glucose,Whole Blood 123 mg/dL (75-99)
[2021-07-25] MEDS ORDERED: ONDANSETRON 4 MG/2 ML VIAL ONE (12:10)
[2021-07-25] MEDS ORDERED: MIDAZOLAM 2 MG/2 ML VIAL IVP ONE (12:15)
[2021-07-25] MEDS ORDERED: DEXAMETHASONE SOD PHOSPHATE 4 MG/ML 1 ML VIAL IVP ONE (12:16)
[2021-07-25] MEDS ORDERED: fentaNYL (PF) 50 MCG/ML 2 ML AMP ONE (12:18)
[2021-07-25] MEDS ORDERED: PROPOFOL 10 MG/ML 20 ML VIAL IV ONE (12:18)
[2021-07-25] MEDS ORDERED: KETAMINE 10 MG/ML 20 ML VIAL ONE (12:18)
[2021-07-25] MEDS ORDERED: MIDAZOLAM 2 MG/2 ML VIAL ONE (12:18)
[2021-07-25] MEDS ORDERED: BUPIVACAINE (PF) 0.25% 30 ML VIAL SQ ONE (12:22)
--- NOTE | 2021-07-25 12:46 | P.OP ---
Date of Procedure: 07/25/21 Preoperative Diagnosis: Left anterior hip area wound Postoperative Diagnosis: Left anterior hip area proximal 3 cm wound Procedure(s) Performed: Repair left anterior hip 3 cm wound Anesthesia: MAC, local Surgeon: Dionicio Echeverria Independent Living Specialist #1: Christiano Muhammad Estimated Blood Loss (ml): 3 Pathology: none sent Condition: stable Disposition: PACU Indications for Procedure: 70-year-old patient seen with a left hip area wound with history of total hip arthroplasty via direct anterior approach. I discussed repair of this wound. She was agreeable. Consent was obtained. Operative Findings: See description of procedure Description of Procedure: The patient was taken to the operative suite. She had received preoperative IV antibiotics. She underwent IV sedation by the department of anesthesia. The area was prepped and draped in normal sterile orthopedic fashion. The area was infiltrated with approximately 10 mL quarter percent plain Marcaine for analgesia. Once sufficient analgesia was noted I explored the wound. There was superficial and extended just into subcutaneous superficial area. I excise some granulation tissue centrally. There was actually horizontal and was located at the very proximal portion of the previous incision but it actually did not appear to involve the previous incision. The wound was irrigated. I repaired the wound with nylon suture. We applied sterile dressings. The patient was awakened and tolerated procedure well. Dixon DURON assisted with the procedure.
[2021-07-25 13:00] VITALS: PULSE 80
[2021-07-25 13:22] VITALS: BP 106/71; RESP 16
== END 2021-07-25 13:48 | disposition home or self-care (01) ==
LOC: OR 11:34
PROVIDERS: ATTEND Orthopaedic Surgery
DX: T81.31XA Disruption of external operation (surgical) wound, not elsewhere classified, initial encounter (principal); Z96.642 Presence of left artificial hip joint; I10 Essential (primary) hypertension; E11.9 Type 2 diabetes mellitus without complications; I25.10 Atherosclerotic heart disease of native coronary artery without angina pectoris; E78.5 Hyperlipidemia, unspecified; F32.9 Major depressive disorder, single episode, unspecified; F41.9 Anxiety disorder, unspecified; Y83.8 Other surgical procedures as the cause of abnormal reaction of the patient, or of later complication, without mention of misadventure at the time of the procedure; Z79.82 Long term (current) use of aspirin; Z79.84 Long term (current) use of oral hypoglycemic drugs; Z79.899 Other long term (current) drug therapy; Z90.710 Acquired absence of both cervix and uterus; Z98.890 Other specified postprocedural states
CPT/HCPCS: 11042; J2250; J1100; J0690; J2405; J3010; J2704